=== PATIENT | male | born 1980 | race Caucasian/White ===

== ENCOUNTER → 2018-07-09 06:40 | Outpatient (CLI) | payer OTHER, SELFPAY ==
--- NOTE | 2018-07-09 06:42 | DI.MRI.S_ITS ---
PROCEDURE: MR KNEE RT WO CON INDICATIONS: right knee strain TECHNIQUE: Noncontrast sagittal PD fast spin echo and T2 fast spin echo with fat saturation, sagittal 3-D FLASH with fat saturation; coronal T1 spin echo and PD fast spin echo with fat saturation, and axial PD fast spin echo with fat saturation through the knee. COMPARISON: None. FINDINGS: Image quality: Excellent. Menisci: The medial and lateral menisci demonstrate normal morphology and internal signal. The meniscal root ligaments appear intact. Cruciate ligaments: The anterior and posterior cruciate ligaments appear intact. Medial structures: There is low-grade proximal MCL sprain near its femoral insertion. The posterior oblique ligament, semimembranosus tendon insertions, oblique popliteal ligament, and meniscocapsular junction appear intact. Visualized portions of the pes anserinus tendons appear normal. No abnormal bursal fluid. Lateral structures: The lateral collateral ligament, long and short heads of the biceps femoris tendon appear intact. The popliteus tendon appears normal; the popliteofibular ligament appears intact. The posterosuperior and anteroinferior popliteomeniscal fascicles appear intact. The arcuate and fabellofibular ligaments appear intact, on either side of the lateral inferior geniculate artery. Iliotibial band appears normal. Anterior structures: The quadriceps and patellar tendons appear intact. Patellar alignment is normal. No femoral trochlear dysplasia or ventral trochlear prominence. No edema in the infrapatellar fat pad. Bones and cartilage: There is subtle edema involving anterior periphery of medial femoral condyle with signal abnormality involving the adjacent medial portion of trochlear cartilage. 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 No fracture or dislocation. Mild soft tissue swelling along anterior aspect of patella tendon is seen. Joint space: There is physiologic knee joint fluid. No Lin's cyst. Normal appearing synovial plicae are incidentally noted. IMPRESSION: 1. Low-grade proximal MCL sprain near its femoral insertion. Cruciate ligaments are intact. 2. No evidence of focal meniscal tear. 3. Suggestion of contusion involving anterior aspect of the right knee with soft tissue swelling along anterior aspect of patella tendon. 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 Dictated by: Faustino Sebastian M.D. on 07/09/2018 at 11:57 Approved by: Faustino Sebastian M.D. on 07/09/2018 at 12:10
== END ==
PROVIDERS: PCP Family Medicine; Visit Provider Physician Assistant
DX: S83.411A Sprain of medial collateral ligament of right knee, initial encounter (principal); M22.41 Chondromalacia patellae, right knee; S80.01XA Contusion of right knee, initial encounter
CPT/HCPCS: 73721